=== PATIENT | female | born 1985 | race Caucasian/White ===

== ENCOUNTER 2019-10-27 21:35 | Emergency (ER) | payer OTHER ==
[~2019-10-27] VITALS: Ht 165.1 cm; Wt 95.3 kg
[~2019-10-27 21:35] MED LIST: CIPROFLOXACIN500 M1 PO; FLEXERIL PO; IBUPROFEN 800800 M1 PO; NOHOMEMEDICATIONS; NORCO 5-325 TA1 EACH PO; PROVERA10 MG PO; PYRIDIUM200 MG PO; SPRINTEC1 EACH
[2019-10-27 21:40] VITALS: BP 151/100
[2019-10-27] MEDS ORDERED: ADDERALL 20 MG20 MG PO (21:50)
[2019-10-27] MEDS ORDERED: CYMBALTA30 MG PO (21:50)
== END 2019-10-27 21:56 | disposition home or self-care (01) ==
LOC: M.ERS 21:35
DX: G89.29 Other chronic pain (principal); M79.7 Fibromyalgia; Z71.1 Person with feared health complaint in whom no diagnosis is made; Z79.899 Other long term (current) drug therapy